=== PATIENT | female | born 1995 | race Caucasian/White ===

== ENCOUNTER 2023-05-26 08:26 | Emergency (ER) | payer OTHER ==
[~2023-05-26] VITALS: Ht 165.1 cm; Wt 62.6 kg
[2023-05-26 08:49] VITALS: BP_SYST 110; PULSE 95; RESP 18; TEMP 98.3; O2SAT 98
[2023-05-26 09:38] LABS: INFLUENZA TYPE A Negative (NEGATIVE); INFLUENZA TYPE B NEGATIVE (NEGATIVE)
[2023-05-26 10:00] LABS: COVID19 ANTIGEN SOFIA FIA POSITIVE (NEGATIVE)
[2023-05-26] MEDS ORDERED: OSEL75CA PO (10:45)
[2023-05-26] MEDS ORDERED: CLAR-61 PO (10:46)
[2023-05-26 11:07] VITALS: BP_SYST 110; PULSE 95; RESP 18; TEMP 98.3; O2SAT 98
== END 2023-05-26 11:06 | disposition home or self-care (01) ==
LOC: SED 08:26
DX: U07.1 COVID-19 (principal); J40 Bronchitis, not specified as acute or chronic; R05.9 Cough, unspecified; M79.10 Myalgia, unspecified site; R51.9 Headache, unspecified; Z79.899 Other long term (current) drug therapy
CPT/HCPCS: 36415; 99283